=== PATIENT | female | born 1990 | race Native Hawaiian/Other Pacific Islander ===

== ENCOUNTER 2020-11-16 21:38 | Emergency (ER) | payer OTHER ==
[~2020-11-16] VITALS: Ht 165.1 cm; Wt 91.6 kg
[2020-11-16 22:29] LABS: PLATELET COUNT 214 K/uL (152-353)
[2020-11-16 22:33] LABS: POTASSIUM 3.8 mmol/L (3.6-5.2)
[2020-11-17 00:12] VITALS: BP 128/70; TEMP 98.2
== END 2020-11-17 00:12 | disposition home or self-care (01) ==
LOC: ED 21:38
PROVIDERS: Hospitalist
DX: N13.2 Hydronephrosis with renal and ureteral calculous obstruction (principal)
CPT/HCPCS: 80053; 81000; 81025; 83690; 85027; 96360; 96361; 96365; 96375; 99284; J0696; J1170; J1885; J2405